=== PATIENT | female | born 1970 | race Caucasian/White ===

== ENCOUNTER 2023-07-10 14:30 | Emergency (ER) | payer OTHER ==
[~2023-07-10] VITALS: Ht 160 cm; Wt 89.7 kg
[2023-07-10] MEDS ORDERED: ASPI325T53 PO (14:39)
[2023-07-10 16:19] LABS: BASO # 0.1 10^3/uL (0.0-0.2); BASO % 1.1 % (0.0-1.0); EOS # 0.3 10^3/uL (0.0-0.5); EOS % 3.5 % (0.0-3.0); HEMATOCRIT 44.5 % (36.0-47.0); HEMOGLOBIN 14.9 g/dl (12.0-15.5); LYMPH # 2.9 10^3/uL (1.5-5.0); LYMPH % 30.8 % (24.0-44.0); MEAN CORPUSCULAR HEMOGLOBIN 33.7 pg (27.0-33.0); MEAN CORPUSCULAR HGB CONC 33.5 g/dl (32.0-36.5); MEAN CORPUSCULAR VOLUME 100.7 fl (80.0-96.0); MONO # 0.8 10^3/uL (0.0-0.8); MONO % 8.2 % (2.0-8.0); NEUTROPHILS # 5.2 10^3/uL (1.5-8.5); NEUTROPHILS % 55.7 % (36.0-66.0); PLATELET COUNT, AUTOMATED 286 10^3/uL (150-450); RED BLOOD COUNT 4.42 10^6/uL (4.00-5.40); WHITE BLOOD COUNT 9.4 10^3/uL (4.0-10.0)
[2023-07-10 16:33] LABS: D-DIMER QUANT 0.42 ug/mL (<0.5); INR 0.93; PROTHROMBIN TIME 12.2 SECONDS (12.5-14.5)
[2023-07-10 16:40] LABS: LIPASE 193 U/L (12-53)
[2023-07-10 16:42] LABS: ALBUMIN 4.4 G/DL (3.2-5.2); ALKALINE PHOSPHATASE 162 U/L (46-116); ALT/SGPT 46 U/L (7.0-40); AST/SGOT 30 U/L (<34); BILIRUBIN,DIRECT < 0.1 MG/DL (<0.4); BILIRUBIN,TOTAL 0.3 MG/DL (0.3-1.2); BLOOD UREA NITROGEN 12 MG/DL (9-23); CALCIUM LEVEL 10.8 MG/DL (8.5-10.1); CARBON DIOXIDE LEVEL 27 MMOL/L (20-31); CHLORIDE LEVEL 101 MMOL/L (98-107); CK-MB VALUE MASS < 1.0 NG/ML (<3.6); CREATININE FOR GFR 0.55 MG/DL (0.55-1.30); GLOMERULAR FILTRATION RATE > 60.0 (>51); GLUCOSE, FASTING 172 MG/DL (60-100); POTASSIUM SERUM 5.3 MMOL/L (3.5-5.1); SODIUM LEVEL 138 MMOL/L (136-145)
[2023-07-10 16:44] LABS: FREE T4 1.35 NG/DL (0.89-1.76); THYROID STIMULATING HORMONE 0.976 uIU/ML (0.55-4.78)
[2023-07-10 17:00] LABS: CPK CREATINE PHOSPHOKINASE 72 U/L (34-145); MB/CK RELATIVE INDEX 1.38 (< OR =4)
[2023-07-10] MEDS ORDERED: ALBU8.5H INH (17:10)
[2023-07-10] MEDS ORDERED: MONT10TA97 PO (17:10)
[2023-07-10] MEDS ORDERED: TIZA10TA PO (17:10)
[2023-07-10] MEDS ORDERED: PRAZ2CAP PO (17:10)
[2023-07-10] MEDS ORDERED: PANT40TA29 PO (17:10)
[2023-07-10] MEDS ORDERED: VITA500T11 PO (17:10)
[2023-07-10] MEDS ORDERED: BUSP30TA PO (17:10)
[2023-07-10] MEDS ORDERED: LEVO25TA5 PO (17:10)
[2023-07-10] MEDS ORDERED: OXYC-517 PO (17:10)
[2023-07-10] MEDS ORDERED: CYAN100049 PO (17:10)
[2023-07-10] MEDS ORDERED: STEG5TAB PO (17:10)
[2023-07-10] MEDS ORDERED: DICY20TA20 PO (17:10)
[2023-07-10] MEDS ORDERED: GABA600T4 PO (17:10)
[2023-07-10] MEDS ORDERED: VITA200016 PO (17:10)
[2023-07-10] MEDS ORDERED: LISI10TA22 PO (17:10)
[2023-07-10] MEDS ORDERED: FERR325T19 PO (17:10)
[2023-07-10] MEDS ORDERED: MIRT-10 PO (17:10)
[2023-07-10] MEDS ORDERED: CETI-24 PO (17:10)
[2023-07-10] MEDS ORDERED: VENL150C43 PO (17:10)
[2023-07-10] MEDS ORDERED: URSO300C3 PO (17:10)
[2023-07-10 17:11] LABS: CK-MB VALUE MASS < 1.0 NG/ML (<3.6)
[2023-07-10 17:13] LABS: CPK CREATINE PHOSPHOKINASE 54 U/L (34-145); MB/CK RELATIVE INDEX 1.85 (< OR =4)
[2023-07-10] MEDS ORDERED: HOME MED LIST COMPLETE! XX SCH (17:15)
[2023-07-10 17:54] VITALS: BP 146/85; TEMP 98.4; O2SAT 99
== END 2023-07-10 17:56 | disposition home or self-care (01) ==
LOC: M ED 14:30
DX: K86.1 Other chronic pancreatitis (principal); E11.9 Type 2 diabetes mellitus without complications; I10 Essential (primary) hypertension; E78.5 Hyperlipidemia, unspecified; K21.9 Gastro-esophageal reflux disease without esophagitis; F32.9 Major depressive disorder, single episode, unspecified; J44.9 Chronic obstructive pulmonary disease, unspecified; F41.9 Anxiety disorder, unspecified; Z88.8 Allergy status to other drugs, medicaments and biological substances; Z79.52 Long term (current) use of systemic steroids; Z79.82 Long term (current) use of aspirin; Z79.811 Long term (current) use of aromatase inhibitors; Z79.899 Other long term (current) drug therapy